=== PATIENT | female | born 1945 | race Hispanic/Latino ===

== ENCOUNTER → 2023-12-24 | Outpatient (CLI) | payer MEDICARE | END | disposition home or self-care (01) | LOC: RAH 13:19 | PROVIDERS: ATTEND Internal Medicine | DX: M54.9 Dorsalgia, unspecified (principal); M40.299 Other kyphosis, site unspecified; R29.890 Loss of height | CPT/HCPCS: 72040; 72070; 72100 ==

== ENCOUNTER 2024-06-16 10:24 | Observation (INO) | payer MEDICARE ==
[2024-06-15 11:39] LABS: BASOPHILS # (AUTO) 0.03 K/uL (0.00-0.20); BASOPHILS % (AUTO) 0.5 % (0.0-5.0); EOSINOPHILS # (AUTO) 0.12 K/uL (0.00-0.70); IMMATURE GRANULOCYTE ABSOLUTE 0.02 K/uL (0-1); LYMPHOCYTES # (AUTO) 1.3 K/uL (1.0-4.8); LYMPHOCYTES % (AUTO) 20.9 % (21.0-51.0); MEAN CORPUSCULAR HEMOGLOBIN 31.1 pg (27.0-33.0); MEAN CORPUSCULAR HGB CONC 32.5 g/dL (32.0-36.0); MEAN CORPUSCULAR VOLUME 95.7 fL (79-99); MONOCYTES # (AUTO) 0.6 K/uL (0.1-1.0); MONOCYTES % (AUTO) 9.3 % (3.0-13.0); PLATELET COUNT (AUTO) 404 K/uL (130-400); RED BLOOD CELL COUNT(AUTO) 3.76 MIL/uL (4.00-5.50); RED CELL DISTRIBUTION WIDTH 14.6 % (11.0-15.5)
[2024-06-15 11:51] LABS: CREATININE 0.5 mg/dL (0.5-1.0); POTASSIUM 4.2 mmol/L (3.5-5.1)
[2024-06-15 12:03] VITALS: BP 147/65; PULSE 68; RESP 12; TEMP 97.7
--- NOTE | 2024-06-15 13:00 | EKG ---
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
[2024-06-16] VITALS (20 sets, daily range): BP systolic 122–160; BP diastolic 54–82; PULSE 69–94; RESP 16–20; TEMP 97.5–100; O2SAT 98
[~2024-06-16] VITALS: Ht 147.3 cm; Wt 38.6 kg
[~2024-06-16 10:24] MED LIST: ALEN35TA53 PO; AMLO-257 PO; CITA-107 PO; ERGO500093 PO; FAMO40TA7 PO; HALO5TAB PO; LIDO700A30 TP; LINA145C PO; OMEP40CA21 PO; PROP10TA10 PO; TRAM100C3 PO; TRAZ-185 PO
[2024-06-16] MEDS: ceFAZolin SODIUM 2 GM VIAL ONE (10:45)
[2024-06-16] MEDS: LACTATED RINGERS 1000ML 1,000 ML IV ONE (10:46)
[2024-06-16] MEDS ORDERED: PoTASSium chloRIDE 20MEQ ER 20 MEQ ERTAB PO PRN (12:30)
[2024-06-16] MEDS ORDERED: FE FUMARATE/FA/MV, MIN COMB#15 1 TAB PO PRN (12:30)
[2024-06-16] MEDS ORDERED: trAZOdone HCL 50 MG TAB PO PRN (12:30)
[2024-06-16] MEDS ORDERED: CALCIUM CARB 500MG PO PRN (12:30)
[2024-06-16] MEDS ORDERED: ondanSETRON 4MG INJ IVP PRN (12:30)
[2024-06-16] MEDS ORDERED: PoTASSium chloRIDE 20MEQ/100ML 100 ML IV PRN (12:30)
[2024-06-16] MEDS ORDERED: PoTASSium chl 10% ELIXIR 20MEQ 20 MEQ/15 ML UDCUP PO PRN (12:30)
[2024-06-16] MEDS ORDERED: DiphenhydrAMINE HCL 50 MG/ML VIAL IVP PRN (12:30)
[2024-06-16] MEDS ORDERED: LIDOCAINE PF 100MG/5ML (2%) SYRINGE 5ML ONE (12:37)
[2024-06-16] MEDS ORDERED: ondanSETRON 4MG INJ ONE (12:37)
[2024-06-16] MEDS ORDERED: dexaMETHasone SOD PHOSPHATE 10MG/ML 1ML VIAL ONE (12:38)
[2024-06-16] MEDS ORDERED: proPOFol 10 MG/ML 20ML VIAL IV ONE (12:38)
[2024-06-16] MEDS ORDERED: MIDAZOLAM HCL 1 MG/ML 2ML VIAL ONE (12:38)
[2024-06-16] MEDS ORDERED: rocuRONium bROMide 10MG/1ML 5ML VL ONE (12:38)
[2024-06-16] MEDS ORDERED: FENTanyl CITRate PF 50 MCG/1 ML 2ML VIAL ONE (12:38)
[2024-06-16] MEDS ORDERED: phenylEPHRINE HCL 10 MG/ML 1ML VIAL IV ONE ×2 (13:32→16:27)
[2024-06-16] MEDS ORDERED: ROPivacaine 0.5% 5MG/ML 30ML ONE (13:41)
[2024-06-16] MEDS ORDERED: NEOSTIGMINE METHYLSULFATE 1MG/ML IV ONE (14:21)
[2024-06-16] MEDS ORDERED: GLYCOPYRROLATE 0.2 MG/ML 5 ML VIAL ONE (14:21)
[2024-06-16] MEDS ORDERED: ceFAZolin SODIUM 2 GM VIAL IVPB SCH (17:30)
--- NOTE | 2024-06-16 18:46 | NUR ---
PATIENT ARRIVED AT ORTHO AT 1840 PATIENT ARRIVED AT ORTHO, RESTING PEACEFULLY. INITIAL VITALS: TEMPERATURE 98.8 BP 148/66 HR 94 O2 SAT 97% ON 2L NASAL CANNULA.
[2024-06-16] MEDS: ketOROlac 15MG/ML VIAL (15MG/ML) IV SCH (18:48)
[2024-06-16] MEDS: SUGAMMADEX SODIUM 200 MG/2 ML VIAL IV ONE (18:49)
--- NOTE | 2024-06-16 19:06 | OP ---
Operative Note: DATE OF PROCEDURE: 06/16/24 SURGEON: ANGEL DON MD RESEARCH MICROBIOLOGIST: AYDEN Dong ANESTHESIA: General and interscalene block ANESTHESIOLOGIST/COLLEGE HIRE: MARY Wilkinson PREOPERATIVE DIAGNOSIS: Right proximal humerus fracture with humeral head dislocation POSTOPERATIVE DIAGNOSIS: Right proximal humerus fracture with humeral head di slocation PROCEDURE: Right reverse total shoulder arthroplasty for fracture with increased complexity ESTIMATED BLOOD LOSS: 400 cc COMPLICATIONS: None DRAINS: None SPECIMENS: resected bone from the humeral head not sent to pathology IMPLANTS: [employer] size 32/12 120mm FX V135 stem with locking screw, 32 +3 cup, centered 32 mm glenosphere, standard base plate with central screw and one compression screw two locking screws INDICATIONS: 78-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 She was seen in my clinic last week. After discussion the risk, benefits, and alternatives, with the POA, they voluntarily agreed to have the patient undergo the aforementioned procedure. DESCRIPTION OF PROCEDURE: Patient was properly identified in the preoperative holding area. Surgical site marking was verified and surgery consent reviewed. The patient was then taken to the operating room and placed in supine position on the OR table. After induction of general anesthesia, preoperative antibiotics were given, all bony prominences were well-padded as the patient was transitioned into beachchair positioning. The right upper extremity was then prepped and draped in usual sterile fashion. Surgical time out was done verifying correct surgery, side, site, and location to be performed. We then began the procedure by making approximately 12 cm long incision over the deltopectoral interval using a 10 blade. Hemostasis was performed using Bovie electrocautery. We then dissected through the subcutaneous tissues using the Metzenbaums to identify our deltopectoral interval. We then mobilized the cephalic vein laterally as we opened the interval. This was tied off. We then incised the clavipectoral fascia just lateral to the conjoined tendon and placed our retractor deep to this. The anatomy was then very difficult to discern due to the trauma. We identified the humeral shaft anteriorly and began to palpate deep in the wound posteriorly identifying the humeral head. We attempted to place a #2 Ethibond traction suture through portion of the rotator cuff to assist with excising the fractured head. We still remove the majority of the humeral head piecemeal with one large articular fragment coming out easily. The remainder of the fragments were some wall and still attached to the rotator cuff at their insertions. Once we are able to remove the humeral head we then excised a any remaining palpable bony fragments in the rotator cuff that they were attached to. We excised the remaining long head of the biceps with a in the joint. We then placed our retractors around the glenoid for exposure to work the glenoid side. We then used to the guide to insert our central guidepin ensuring we were far enough inferior on the glenoid face. Over the central guidepin we reamed with the all-in-one reamer for the central peg and the baseplate We then used the tool filer hand to clean up the remaining soft tissue and bone. We then thoroughly irrigated out the glenoid bone and impacted into position the glenoid baseplate. We elected to place a central screw through the base plate We then placed 1 compression screw and 2 locking screw in the baseplate. We noted using a freer elevator that the baseplate was appropriately seated. We elected to use a centered glenosphere. Glenosphere was then seated in standard fashion with the setscrew tightened. We then removed our retractors and dislocated the humerus once more. At this point we began using the sounding instruments, hand reaming up to a size 12. We then broached up to a size 12/32. We then elected to trial with a size +3 polye thylene and noted this to be way too tight and unreducible. Additionally the broach trial was spinning in the humerus. At this point we elected to put in the final stem implant and placed this within the canal. We noted a small crack longitudinally down the humerus. We went ahead and placed a locking screw through a separate stab incision using the aiming arm to stabilize our stem. We then attempted a reduction with the size plus three polyethylene in place. This was again noted to be too tight and unable to reduce. We then removed the standard locking screw. We then resected more of the proximal humerus where there was a medial metadiaphyseal prominence. We then replaced the stem implant in place the locking screw once again through the aiming arm. We were then able to achieve a reduction with a size plus three polyethylene trial in place. With this in place, we reduced the humerus and noted good stable range of motion. We then dislocated the humerus and remove the trial components. We thoroughly irrigated out the interface of the stem. We opened the final polyethylene and implanted this in standard fashion. We then reduced the humerus once more and ensured appropriate range of motion and stability. We checked the position of the components under fluoroscopy and found them to be appropriate. Due to the anatomic changes from the trauma and the contractures of the soft tissues this procedure took significantly more time than it normally does. We thoroughly irrigated out the wound. We then began loosely repairing the deltopectoral interval using #2 Ethibond. Subcutaneous tissue was approximated using 2-0 Vicryl. The skin was closed using a running subcuticular 3-0 Monocryl with Dermabond applied. An Optifoam dressing was applied once the Dermabond dried. The patient was then placed into a sling, awakened from anesthesia, and taken recovery room in stable condition. ANGEL DON MD Jun 16, 2024 19:05
[2024-06-16] MEDS: 0.9%NACL 1000ML 1,000 ML IV SCH (19:53)
[2024-06-16] MEDS: citaLOPram 20 MG TABLET PO SCH (20:01)
[2024-06-16] MEDS: HALOPERIDOL 5 MG TABLET PO SCH (20:01)
[2024-06-16] MEDS: PANTOPrazole 40 MG TAB DR PO SCH (20:01)
[2024-06-16] MEDS: doCUSate SODIUM 100 MG CAP PO SCH (20:01)
[2024-06-16] MEDS: PROPRANOLOL HCL 10 MG TAB PO SCH (20:01)
[2024-06-16] MEDS: ceFAZolin SODIUM 2 GM VIAL IVPB SCH (20:02)
--- NOTE | 2024-06-16 22:49 | HMCIMG ---
SHOULDER COMP 2+VWS RT HISTORY: Reverse total shoulder arthroplasty COMPARISON: None TECHNIQUE: Fluoroscopic images were obtained. 3 images were obtained. FINDINGS: Please see procedure report by referring physician. Fluoroscopy time is 13.6 seconds. IMPRESSION: 1. Findings as described above.
[2024-06-16] MEDS: traMADol HCL 50 MG TABLET PO PRN (23:22)
[2024-06-17] MEDS: CYCLOBENZAPRINE HCL 10 MG TABLET PO PRN (00:11)
[2024-06-17 00:45] VITALS: BP 129/49; PULSE 82; RESP 20; TEMP 99
[2024-06-17 04:00] VITALS: BP 143/60; PULSE 81; RESP 18; TEMP 98.2
[2024-06-17 05:10] LABS: CREATININE 0.6 mg/dL (0.5-1.0)
[2024-06-17 07:13] LABS: HEMATOCRIT 23.6 % (36-48); MEAN CORPUSCULAR HEMOGLOBIN 31.2 pg (27.0-33.0); MEAN CORPUSCULAR HGB CONC 33.1 g/dL (32.0-36.0); MEAN CORPUSCULAR VOLUME 94.4 fL (79-99); RED BLOOD CELL COUNT(AUTO) 2.5 MIL/uL (4.00-5.50); RED CELL DISTRIBUTION WIDTH 14.8 % (11.0-15.5); WHITE BLOOD COUNT (AUTO) 7.9 K/uL (4.8-10.8)
[2024-06-17 08:00] VITALS: BP 141/123; PULSE 89; RESP 18; TEMP 98.3; O2SAT 98
[2024-06-17] MEDS: amLODIPine 5 MG TAB PO SCH (08:04)
[2024-06-17] MEDS: ASPIRIN 325MG TAB PO SCH (08:04)
[2024-06-17] MEDS: Linaclotide (Linzess) 145 MCG PO SCH (08:06)
[2024-06-17] MEDS: polyETHYLene GLYCol 3350 17 GM POWD.PACK PO SCH (08:06)
--- NOTE | 2024-06-17 08:32 | PN ---
Ortho postop day one. The patient is awake. She is alert she does respond to questions appropriately. Vitals have remained stable. She is afebrile. Laboratory results reviewed. Noted to have a drop in hemoglobin and hematocrit as expected after reverse shoulder arthroplasty. Currently Matthew asymptomatic. We will observe and address per protocol. I have reinforce incentive spirometry but will likely need encouragement by nursing staff. The dressing to the anterior ductal pectoral region is intact. There is diffuse ecchymosis and edema. She is able to open and close her hand on command. She is pending therapy this morning. Anticipated discharge goal with a halfway facility likely. Assessment: Status post reverse shoulder arthroplasty with increased complexity secondary to humeral fracture. Acute postoperative blood loss anemia. Plan: Continue with Dr. Evans protocol and discharge planning. Acute postoperative blood loss anemia addressed with the protocol as necessary Vitals/Labs Vital Signs Date Time Temp Pulse Resp B/P (MAP) Pulse Ox O2 Delivery O2 Flow Rate FiO2 06/17/24 04:00 98.2 81 18 143/60 98 Nasal Cannula 2.0 06/16/24 19:26 28 Laboratory Tests 06/17/24 04:49 06/17/24 06:37 Medications Current Medications Cefazolin Sodium 2 gm STK-MED ONCE .ROUTE; Start 06/16/24 at 10:34; Stop 06/16/24 at 10:35; Status DC Lactated Ringer's 1,000 ml @ As Directed STK-MED ONCE IV Last administered on 06/16/24at 10:46; Start 06/16/24 at 10:34; Stop 06/16/24 at 10:35; Status DC Sodium Chloride 1,000 ml @ 100 mls/hr Q10H IV Last administered on 06/16/24at 20:02; Start 06/16/24 at 12:30; Stop 06/17/24 at 12:29 Polyethylene Glycol 17 gm DAILY PO Last administered on 06/17/24at 08:06; Start 06/17/24 at 09:00; Stop 07/17/24 at 08:59 Bisacodyl 10 mg DAILY PRN RC; Start 06/19/24 at 12:30; Stop 07/19/24 at 12:29 Aspirin 325 mg BID PO Last administered on 06/17/24at 08:04; Start 06/17/24 at 09:00; Stop 07/17/24 at 08:59 Ketorolac Tromethamine 15 mg Q6H PRN IV; Start 06/17/24 at 12:30; Stop 06/22/24 at 12:29 Multivitamins/Iron 1 tab DAILY PRN PO; Start 06/16/24 at 12:30; Stop 07/16/24 at 12:29 Ondansetron HCl 4 mg Q6H PRN IVP; Start 06/16/24 at 12:30; Stop 07/16/24 at 12:29 Calcium Carbonate 500 mg Q12H PRN PO; Start 06/16/24 at 12:30; Stop 07/16/24 at 12:29 Diphenhydramine HCl 25 mg Q6H PRN IVP; Start 06/16/24 at 12:30; Stop 07/16/24 at 12:29 Cefazolin Sodium 2 gm Q8H IVPB; Start 06/16/24 at 17:30; Stop 06/16/24 at 18:50; Status DC Cyclobenzaprine HCl 5 mg Q8H PRN PO Last administered on 06/17/24at 08:04; Start 06/16/24 at 12:30; Stop 07/16/24 at 12:29 Docusate Sodium 100 mg BID PO Last administered on 06/17/24at 08:04; Start 06/16/24 at 21:00; Stop 07/16/24 at 20:59 Ketorolac Tromethamine 15 mg Q8H IV Last administered on 06/17/24at 04:38; Start 06/16/24 at 12:30; Stop 06/17/24 at 04:31; Status DC Potassium Chloride 100 ml @ 100 mls/hr AD PRN IV; Start 06/16/24 at 12:30; Stop 07/16/24 at 12:29 Potassium Chloride 20 meq AD PRN PO; Start 06/16/24 at 12:30; Stop 07/16/24 at 12:29 Potassium Chloride 20 meq AD PRN PO; Start 06/16/24 at 12:30; Stop 07/16/24 at 12:29 Tramadol HCl 50 mg Q6H PRN PO Last administered on 06/17/24at 08:05; Start 06/16/24 at 12:30; Stop 06/21/24 at 12:29 Alendronate Sodium 35 mg QWEEK PO; Start 06/23/24 at 09:00; Stop 07/23/24 at 08:59 Amlodipine Besylate 5 mg DAILY PO Last administered on 06/17/24at 08:04; Start 06/17/24 at 09:00; Stop 07/17/24 at 08:59 Citalopram Hydrobromide 20 mg HS PO Last administered on 06/16/24at 20:01; Start 06/16/24 at 21:00; Stop 07/16/24 at 20:59 Haloperidol 5 mg HS PO Last administered on 06/16/24at 20:01; Start 06/16/24 at 21:00; Stop 07/16/24 at 20:59 Propranolol HCl 10 mg BID PO Last administered on 06/17/24at 08:04; Start 06/16/24 at 21:00; Stop 07/16/24 at 20:59 Trazodone HCl 50 mg HS PRN PO; Start 06/16/24 at 12:30; Stop 07/16/24 at 12:29 Miscellaneous Medication 40 mg DAILY PO; Start 06/17/24 at 09:00; Stop 06/16/24 at 12:32; Status DC Home Med Linaclotide (Linzess) 145 MCG DAILY PO; Start 06/17/24 at 09:00; Stop 07/17/24 at 08:59 Pantoprazole Sodium 40 mg BID PO Last administered on 06/17/24at 08:05; Start 06/16/24 at 21:00; Stop 07/16/24 at 20:59 Lidocaine HCl 100 mg STK-MED ONCE .ROUTE; Start 06/16/24 at 12:37; Stop 06/16/24 at 12:38; Status DC Ondansetron HCl 4 mg STK-MED ONCE .ROUTE; Start 06/16/24 at 12:37; Stop 06/16/24 at 12:38; Status DC Dexamethasone Sodium Phosphate 10 mg STK-MED ONCE .ROUTE; Start 06/16/24 at 12:38; Stop 06/16/24 at 12:38; Status DC Propofol 200 mg STK-MED ONCE IV; Start 06/16/24 at 12:38; Stop 06/16/24 at 12:38; Status DC Midazolam HCl 2 mg STK-MED ONCE .ROUTE; Start 06/16/24 at 12:38; Stop 06/16/24 at 12:38; Status DC Rocuronium [place] 50 mg STK-MED ONCE .ROUTE; Start 06/16/24 at 12:38; Stop 06/16/24 at 12:38; Status DC Fentanyl Citrate 100 mcg STK-MED ONCE .ROUTE; Start 06/16/24 at 12:38; Stop 06/16/24 at 12:39; Status DC Phenylephrine HCl 10 mg STK-MED ONCE IV; Start 06/16/24 at 13:32; Stop 06/16/24 at 13:33; Status DC Ropivacaine 150 mg STK-MED ONCE .ROUTE; Start 06/16/24 at 13:41; Stop 06/16/24 at 13:42; Status DC Glycopyrrolate 1 mg STK-MED ONCE .ROUTE; Start 06/16/24 at 14:21; Stop 06/16/24 at 14:22; Status DC Neostigmine Methylsulfate 10 mg STK-MED ONCE IV; Start 06/16/24 at 14:21; Stop 06/16/24 at 14:22; Status DC Phenylephrine HCl 10 mg STK-MED ONCE IV; Start 06/16/24 at 16:27; Stop 06/16/24 at 16:28; Status DC Cefazolin Sodium 2 gm Q8H IVPB Last administered on 06/17/24at 06:35; Start 06/16/24 at 22:00; Stop 06/17/24 at 06:01; Status DC ELISA RICE NP Jun 17, 2024 08:32
[2024-06-17] MEDS ORDERED: NON-FORMULARY MEDICATION 1 EACH (Famotidine 40 MG) PO SCH (09:00)
[2024-06-17 10:35] VITALS: BP 109/40; PULSE 76
--- NOTE | 2024-06-17 10:35 | NUR ---
nurse note lab rechecked hemoglobin levels due to drop from 11.7 on 06/15/24 to today 06/17/24 Hgb 7.8, vitals stable, patient asymptomatic, bruising to right arm near procedural site, but no active bleeding, per Dr. Evans "continue to monitor" no other interventions at this time.
[2024-06-17 12:00] VITALS: BP 108/52; PULSE 70; RESP 18; TEMP 98.3
[2024-06-17] MEDS ORDERED: ketOROlac 15MG/ML VIAL (15MG/ML) IV PRN (12:30)
[2024-06-17] MEDS ORDERED: PROP10TA10 PO (12:44)
[2024-06-17] MEDS ORDERED: TRAM50TA4 PO (12:44)
[2024-06-17] MEDS ORDERED: CYCL-309 PO (12:44)
[2024-06-17 16:00] VITALS: BP 131/58; PULSE 73; RESP 16; TEMP 98.7
--- NOTE | 2024-06-17 16:34 | NUR ---
TASHA PLAN VISITED WITH PATIENT. PATIENT LIVES IN A [facility]. PATIENT HAS EQUIPMENT THROUGH THE [facility]. TRIED MULTIPLE TIMES TO SPEAK TO DAVID MIKE AND LEONARDO FRITZ. AFTER SEVERAL MESSAGES RECEIVED RE[;Y TO SPEAK TO MR MIKE FROM MR. [facility]Z [phone]. 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 PLAN TO RETURN HOME WITH HIM. HE WILL PICK PATIENT UP. SAID WANTS HOME WITH [facility] [phone] ALREADY SEEING PATIENT FOR NURSING CARE. Addendum: 06/17/24 at 1713 by ELZA FARMER RN CM Amended: Links added.
--- NOTE | 2024-06-17 17:28 | NUR ---
DC PLAN SON GAVE PERMISSION FOR [facility] AND FOR MR MIKE TO PICK MOM UP. SAID HE IS WORKING AND CAN NOT ANSWER THE PHONE ALL THE TIME. PACKET MADE AND SENT. SPOKE TO COMPANY SAID ALREADY SEEING PATIENT JUST NEED ORDER FOR PT TO START PT WELL. SENT MESSAGE TO DR. DON GOT OKAY TO SET UP HOME HEALTH. ORDER SENT. PATIENT ACCEPTED BACK NURSE NOTIFIED. Addendum: 06/17/24 at 1735 by ELZA FARMER RN CM Amended: Links added.
--- NOTE | 2024-06-17 17:36 | NUR ---
DC PLAN [facility] - ACCEPTED [phone] PATIENT ACCEPTED LET NURSE KNOW. ALSO LET NURSE KNOW TO CALL MR MIKE [phone] FOR MANAGER CUSTOMER SERVICE OF PATIENT. HE IS HER MATERIALS COORDINATOR AND SON THEODORE THORPE [phone] SAID MR MIKE CAN MAKE DECISIONS FOR HIM SINCE HE IS AT WORK. MOM HAS DEMENTIA AND CAN NOT GIVE CONSENT HERSELF. CM DID TRY TO TALK TO PATIENT BUT DELAYED RESPONSE AND DID NOT CONNECT QUESTIONS WITH APPROPRIATE ANSWER. Addendum: 06/17/24 at 1748 by ELZA FARMER RN CM Amended: Links added.
--- NOTE | 2024-06-17 17:40 | NUR ---
discharge report to home health agency called report to [facility], spoke to TRACI Nichole, instructed nurse on patient status, diet, activity, PT to be started, answered family/caregiver questions, they understood.
--- NOTE | 2024-06-17 17:52 | NUR ---
discharge patient and caregiver given discharge paperwork, educated patient and caregiver regarding diet, activity, follow up visits, signs and symptoms to report/return to ER. answered caregiver's questions, understood.
[2024-06-19] MEDS ORDERED: BisaCODYL 10 MG SUPP.RECT RC PRN (12:30)
[2024-06-23] MEDS ORDERED: ALENDRONATE SODIUM 35 MG TAB PO SCH (09:00)
== END 2024-06-17 18:45 | disposition home health service (06) ==
LOC: DAH 10:24 → DAHIP 10:25 → DAH 10:25 → 4CH 18:40
PROVIDERS: ADMIT Student in an Organized Health Care Education/Training Program; ATTEND Student in an Organized Health Care Education/Training Program
DX: M19.011 Primary osteoarthritis, right shoulder (principal); S42.291A Other displaced fracture of upper end of right humerus, initial encounter for closed fracture; G89.18 Other acute postprocedural pain; D62 Acute posthemorrhagic anemia; F31.9 Bipolar disorder, unspecified; K21.9 Gastro-esophageal reflux disease without esophagitis; I10 Essential (primary) hypertension; Z79.899 Other long term (current) drug therapy; X58.XXXA Exposure to other specified factors, initial encounter; Y93.89 Activity, other specified; Y92.89 Other specified places as the place of occurrence of the external cause; Y99.8 Other external cause status
CPT/HCPCS: 80048 ×2; 85025; 84134; 86140; 36415 ×2; 93005; 87641; 64415; 96365; 96375; 23472; 73030; 96376; 96366; 85027; 97161; 97116; 97530 ×3; G0378 ×26; A4223 ×2; A4600; A4663; J7030; J7120; J3010; J1100; J3490 ×2; J2003; J2250; J2704; J2405; J2710; J2795; J1885 ×2; J2371 ×2; J0690 ×2; A4930; A4649; C1776; A6254; A4215; A4213; A4222; A4221; A4216